=== PATIENT | male | born 1990 | race Caucasian/White ===

== ENCOUNTER 2024-04-16 01:13 | Emergency (ER) | payer SELFPAY ==
[~2024-04-16] VITALS: Ht 175.2 cm; Wt 79.4 kg
[~2024-04-16 01:13] MED LIST: MOTRIN800 MG PO
[2024-04-16 01:45] LABS: BASO % 0.4 % (0.0-1.0); EOS # 0.1 10*3/uL (0.0-0.4); EOS % 0.6 % (1.0-4.0); HEMATOCRIT 41.9 % (42.0-52.0); LYMPH # 1.3 10*3/uL (1.3-4.4); LYMPH % 13.6 % (27.0-41.0); MEAN CELL VOLUME 87.5 fl (80.0-94.0); MEAN CORPUSCULAR HGB 29.4 pg (27.0-31.0); MEAN CORPUSCULAR HGB CONC 33.7 g/dl (33.0-37.0); MEAN PLATELET VOLUME 10.8 fl (9.6-12.3); MONO # 0.6 10*3/uL (0.1-1.0); NEUT # 7.3 10*3/uL (2.3-7.9); NEUT % 78.9 % (47.0-73.0); PLATELET COUNT AUTOMATED 271 10*3/uL (130-400); RED BLOOD COUNT 4.79 10*6/uL (4.50-5.90); RED CELL DISTRI WIDTH 12.3 % (0-14.5); WHITE BLOOD COUNT 9.3 10*3/uL (4.8-10.8)
[2024-04-16 02:06] LABS: ALKALINE PHOSPHATASE 73 U/L (46-116); BUN 9 mg/dl (9-23); CHLORIDE 109 mmol/L (98-107); LIPASE 35 U/L (12-53); POTASSIUM 4.6 mmol/L (3.4-5.1); SGPT/ALT 23 U/L (5-49); TOTAL PROTEIN 7.1 gm/dL (6.0-8.0)
[2024-04-16] MEDS ORDERED: Ketorolac Tromethamine 30 MG/ML VIAL IM ONE (02:35)
[2024-04-16] MEDS ORDERED: Ondansetron Hydrochloride 4 MG TAB SL ONE (02:35)
== END 2024-04-16 02:55 | disposition home or self-care (01) ==
LOC: ED 01:13
PROVIDERS: Internal Medicine
DX: K59.00 Constipation, unspecified (principal); R14.1 Gas pain; Z88.7 Allergy status to serum and vaccine